=== PATIENT | male | born 1945 | race Caucasian/White ===

== ENCOUNTER 2017-09-11 16:24 | Emergency (ER) | payer BC, MEDICARE ==
[~2017-09-11] VITALS: Wt 77.7 kg
[~2017-09-11 16:24] MED LIST: HYDR-2932; MAA5
[2017-09-11] MEDS ORDERED: OLANZAPINE (ODT) 5 MG TAB PO STA (17:39)
[2017-09-11 18:02] LABS: BASOPHILS % 0.4 % (0.0-2.0); EOSINOPHILS # 0.1 10^3/ul (0.0-0.5); HEMATOCRIT 41.7 % (42.0-52.0); HEMOGLOBIN 14.5 g/dl (14.0-18.0); LYMPHOCYTES # 3.3 10^3/ul (0.8-2.9); LYMPHOCYTES % 29.7 % (15.0-51.0); MEAN CORPUSCULAR HEMOGLOBIN 28.7 pg (29.0-33.0); MEAN CORPUSCULAR HGB CONC 34.8 g/dl (32.0-37.0); MEAN CORPUSCULAR VOLUME 82.4 fl (82.0-101.0); MONOCYTE # 0.9 10^3/ul (0.3-0.9); MONOCYTES % 7.6 % (0.0-11.0); NEUTROPHIL # 6.9 10^3/ul (1.6-7.5); NEUTROPHILS % 60.9 % (39.0-77.0); PLATELET COUNT 234 10^3/UL (140-415); RED BLOOD COUNT 5.06 10^6/ul (4.70-6.10); RED CELL DISTRIBUTION WIDTH 12.8 % (11.5-14.5); WHITE BLOOD COUNT 11.3 10^3/ul (4.8-10.8)
[2017-09-11 18:17] LABS: INR 0.92; PROTIME 12.4 Sec (11.9-14.9)
[2017-09-11 18:18] LABS: PARTIAL THROMBOPLASTIN TIME 27.7 Sec (25.0-35.0)
--- NOTE | 2017-09-11 18:20 | RADRPT ---
PROCEDURE: XR Chest. CLINICAL INDICATION: Altered level of consciousness TECHNIQUE: Single AP portable chest. COMPARISON: No prior Chest x-ray FINDINGS: The cardiomediastinal silhouette is within normal limits of size. The lungs are clear without pleur al effusion or focal consolidation. No pneumothorax. The osseous structures and soft tissues are unr emarkable. IMPRESSION: 1. No evidence for active cardiopulmonary disease. RPTAT:AAJJ Bill Amaya Physician Date Time Electronically viewed and signed by Physician Shakir on 09/11/2017 18:20 EMELINA/
[2017-09-11 18:22] LABS: ALANINE AMINOTRANSFERASE 46 IU/L (13-69); ALBUMIN 4.2 g/dl (3.3-4.9); ALBUMIN/GLOBULIN RATIO 1.07; ALKALINE PHOSPHATASE 101 IU/L (42-121); ANION GAP 15 (8-16); ASPARTATE AMINO TRANSFERASE 33 IU/L (15-46); BILIRUBIN,INDIRECT 0.7 mg/dl (0-1.1); BILIRUBIN,TOTAL 0.7 mg/dl (0.2-1.3); BLOOD UREA NITROGEN 17 mg/dl (7-20); CALCIUM 9.8 mg/dl (8.4-10.2); CARBON DIOXIDE 28 mmol/L (21-31); CHLORIDE 100 mmol/L (97-110); GLUCOSE 231 mg/dl (70-220); POTASSIUM 4.1 mmol/L (3.5-5.1); SODIUM 139 mmol/L (135-144); TOTAL PROTEIN 8.1 g/dl (6.1-8.1)
[2017-09-11 18:23] LABS: ETHANOL < 10.0 mg/dl; SALICYLATE < 1.0 mg/dl (5.0-30.0)
--- NOTE | 2017-09-11 18:26 | RADRPT ---
PROCEDURE: CT brain without contrast CLINICAL INDICATION: Asymptomatic medical clearance TECHNIQUE: A CT of the brain was performed utilizing axial sections from the skull base through th e vertex without contrast. Sagittal and coronal images were also reformatted. One or more of the fol lowing dose reduction techniques were used: Automated exposure control, adjustment of the mA and/or kV according to patient size, use of iterative reconstruction technique. The exam CTDIvol = 45.01 mGy and DLP = 720.23 mGy-cm. COMPARISON: None available FINDINGS: No acute intracranial hemorrhage is identified. There is no mass effect or midline shift. No extra -axial fluid collection is seen. The ventricles and sulci are larger in size and configuration for the patient's provided age of 72 years consistent with advanced generalized atrophy. Mild low atten uation in the periventricular white matter is nonspecific likely the sequela of chronic small vessel ischemia. Benign physiologic calcifications within the globus pallidus bilaterally are noted. Hilario -white differentiation is preserved with no findings to suggest an acute ischemic infarct. The fourth ventricle is midline and there is no density alteration within the mark or cerebellum. The osseous structures are unremarkable. The mastoid air cells and visualized paranasal sinuses are clear. RPTAT:HJJR IMPRESSION: Advanced atrophy for the patient's provided age with mild chronic small vessel ischemic white matter disease but no evidence of acute intracranial abnormality or mass effect. Physician Juanis Date Time Electronically viewed and signed by Physician Juanis on 09/11/2017 18:26 /
[2017-09-11 18:35] LABS: TROPONIN-I < 0.012 ng/ml (0.00-0.12)
--- NOTE | 2017-09-11 18:47 | PSY ---
Date/Time of Note Date/Time of Note DATE: 09/11/17 TIME: 18:36 Psychiatric Subjective Eval Consent Pt consented to telemedicine: Yes Subjective Evaluation Patient location: emergency Chief Complaint: ALOC X3 DAYS NOW, NO SLURRED SPEECH, NO WEAKNESS, Reason for consult: Evaluation History of present illness Pt is a 72 year old male, Lebanese speaking, who was brought in for altered consciousness. Patient is hyperverbal but directable. Family helped with interpretation. Patient went to another ER last night. At that time, he had gone one night without sleep. He was up pacing, talking about God, and family could not get him to sit still and rest. He was found to have elevated glucose and was given insulin and sent home. However, he did not sleep last night either. Symptoms did not change and so he was brought to [facility] ER tonight. Pt reports his mood is "happy as long as my family is happy." He talks non- stop. He is not hearing things but tells his family that he is seeing the devil and other things that they cannot see. He does not want to but is ready if he needs to . Per family, he recently started an OTC syrup to help control his diabetes. He also has been consuming a lot of Vit B12. Family reports injury at work a few months ago. However, the details of this are not clear. Past psychiatric history Per family, none. Hospitalization: no Family History Denies Medical history Diabetes Allergies: Coded Allergies: No Known Drug Allergy (Verified Allergy, Mild, 10/31/09) Substance Abuse Substance use: No known substance abuse Social History Level of education: NA DPA/Conservatorship: No Occupation/Snf: Works as a utility mechanic Psychiatric Objective Eval Physical Examination: Physical Examination: Applicable Sleep: Insomnia Energy: Increased Interest: Increased Mental Status Examination: Appearance: Poor Hygiene Eye Contact: Poor Psychomotor Activity: Agitated Behavior: Cooperative Speech: Pressured AFFECT: Appropriate Mood: Elevated Thought Content: Hallucinations Suicidal: No Homicidal: No On 72 hour hold: No Orientation: x3 Cognition: Alert Insight: Impared Judgement: Impared Laboratory Results Laboratory Tests Test 09/11/17 16:43 09/11/17 17:37 09/11/17 17:55 Bedside Glucose 258mg/dL 199mg/dL White Blood Count 11.310^3/ul Red Blood Count 5.0610^6/ul Hemoglobin 14.5g/dl Hematocrit 41.7% Mean Corpuscular Volume 82.4fl Mean Corpuscular Hemoglobin 28.7pg Mean Corpuscular Hemoglobin Concent 34.8g/dl Red Cell Distribution Width 12.8% Platelet Count 49919^3/UL Mean Platelet Volume 9.0fl Neutrophils % 60.9% Lymphocytes % 29.7% Monocytes % 7.6% Eosinophils % 1.0% Basophils % 0.4% Nucleated Red Blood Cells % 0.0/100WBC Neutrophils # 6.910^3/ul Lymphocytes # 3.310^3/ul Monocytes # 0.910^3/ul Eosinophils # 0.110^3/ul Basophils # 0.010^3/ul Nucleated Red Blood Cells # 0.010^3/ul Prothrombin Time 12.4Sec Prothrombin Time Ratio 1.0 INR International Normalized Ratio 0.92 Activated Partial Thromboplast Time 27.7Sec Sodium Level 139mmol/L Potassium Level 4.1mmol/L Chloride Level 100mmol/L Carbon Dioxide Level 28mmol/L Anion Gap 15 Blood Urea Nitrogen 17mg/dl Creatinine 0.90mg/dl Glucose Level 231mg/dl Calcium Level 9.8mg/dl Total Bilirubin 0.7mg/dl Direct Bilirubin 0.00mg/dl Indirect Bilirubin 0.7mg/dl Aspartate Amino Transf (AST/SGOT) 33IU/L Alanine Aminotransferase (ALT/SGPT) 46IU/L Alkaline Phosphatase 101IU/L Troponin I < 0.012ng/ml Total Protein 8.1g/dl Albumin 4.2g/dl Globulin 3.90g/dl Albumin/Globulin Ratio 1.07 Salicylates Level < 1.0mg/dl Ethyl Alcohol Level < 10.0mg/dl Assessment and Plan Assessment/Diagnosis [place] I: Bipolar Disorder, Unspecified (possibly induced by OTC product he started using 5 days ago) Recommendation/Plan Medication Management Consider providing Zyprexa 5mg po/im while in ER. Psychotherapy NA Pt. Caregiver/Family Education D/w family Follow-up/Disposition Pt with possible new onset greg. Unusual presentation given his age and reported history. Would recommend full medical workup including neuroimaging, EEG, TSH, Ca, PTH to look for any underlying medical conditions that might induce the greg. It can be challenging to distinguish an agitated delirium from a greg in his age group. However, I think this is rgeg as I did not see any waxing or waning of consciousness. I suspect that this is a substance induced greg from his OTC agents. He has purchased "alternative medication" online and appears to be taking a lot of it. His use of the alternative medicine corresponds to the greg. Once medically cleared, recommend 5150 and transfer to inpatient psychiatry for observation and stabilization. Pt is gravely disabled due to his greg. 5150 Recommendation: FREDY Mirza Sep 11, 2017 18:46
[2017-09-11] MEDS ORDERED: GLIM4TAB PO (18:51)
[2017-09-11] MEDS ORDERED: [UNRECOGNIZED DRUG - OTHER] PO (18:55)
[2017-09-11] MEDS ORDERED: SUGAR BALANCE PO (18:56)
[2017-09-11] MEDS ORDERED: [UNRECOGNIZED DRUG - REMARK] PO (18:58)
--- NOTE | 2017-09-11 19:45 | ERD ---
ER Documentation Chief Complaint Chief Complaint ALOC X3 DAYS NOW, NO SLURRED SPEECH, NO WEAKNESS, HPI Patient is a 72-year-old male with hypertension and diabetes who presents with altered mental status. Please note the history and physical exam is limited secondary to the patient's altered mental status at this time. He keeps talking about God and the Bible constantly. It started 3 days ago and has been worsening per the family. He has no history of psychiatric disease per the family. He has diabetes and has been noncompliant. He has no fevers. He has had a headache for 3 months after an accident 3 months ago. He did start taking a medicine that he saw on TV that he ordered [id number] 5 days ago. It appears to be a multivitamin. Upon review of old medical records this is the patient's third visit to the ER since 2008 he does not have previous psychiatric visits. ROS All systems reviewed and are negative except as per history of present illness. Medications Home Meds Reported Medications [Celulas Madres] No Conflict Check, 1 TAB PO DAILY 09/11/17 [Sugar Balance] No Conflict Check, 1 TAB PO DAILY 09/11/17 [Neurobion B12] No Conflict Check, 1 TAB PO DAILY PATIENT TAKE UNCONTROLLABLE 09/11/17 Glimepiride* (Glimepiride*) Unknown Strength Tablet, 1 TAB PO WITH BREAKFAST, TAB ONCE IN A WHILE 09/11/17 Discontinued Reported Medications Hydrocodone Bit/Acetaminophen (Hydrocodone-Apap 5-500 Mg Tab) 1 Tab Tablet 10/31/09 Al Hydroxide/Mg Hydroxide (Maalox) 148 Ml Susp 10/07/09 Allergies Allergies: Coded Allergies: No Known Drug Allergy (Verified Allergy, Mild, 09/11/17) PMhx/Soc History of Surgery: No Hx Neurological Disorder: No Hx Respiratory Disorders: No Hx Cardiac Disorders: No Hx Miscellaneous Medical Probl: Yes (GALLSTONES, DM , HTN) Hx Alcohol Use: No Hx Substance Use: No Hx Tobacco Use: No Smoking Status: Never smoker FmHx Family History: No diabetes Physical Exam Vitals Vital Signs Date Time Temp Pulse Resp B/P Pulse Ox O2 Delivery O2 Flow Rate FiO2 09/11/17 18:27 97.3 72 18 142/88 95 Room Air 09/11/17 16:31 97.3 84 18 158/92 94 Physical Exam Const: Pressured speech with continuous discussion of God and the Bible Head: Atraumatic Eyes: Normal Conjunctiva ENT: Normal External Ears, Nose and Mouth. Neck: Full range of motion..~ No meningismus. Resp: Clear to auscultation bilaterally Cardio: Regular rate and rhythm, no murmurs Abd: Soft, non tender, non distended. Normal bowel sounds Skin: No petechiae or rashes Back: No midline or flank tenderness Ext: No cyanosis, or edema Neur: Awake and is all 4 extremities, no slurred speech Psych: Patient has pressured speech and continues to discuss God and the Bible, no suicidal or homicidal ideation Result Diagram: 09/11/17 1755 09/11/171754 Results 24 hrs Laboratory Tests Test 09/11/17 16:43 09/11/17 17:37 09/11/17 17:55 Bedside Glucose 258mg/dL 199mg/dL White Blood Count 11.310^3/ul Red Blood Count 5.0610^6/ul Hemoglobin 14.5g/dl Hematocrit 41.7% Mean Corpuscular Volume 82.4fl Mean Corpuscular Hemoglobin 28.7pg Mean Corpuscular Hemoglobin Concent 34.8g/dl Red Cell Distribution Width 12.8% Platelet Count 59834^3/UL Mean Platelet Volume 9.0fl Neutrophils % 60.9% Lymphocytes % 29.7% Monocytes % 7.6% Eosinophils % 1.0% Basophils % 0.4% Nucleated Red Blood Cells % 0.0/100WBC Neutrophils # 6.910^3/ul Lymphocytes # 3.310^3/ul Monocytes # 0.910^3/ul Eosinophils # 0.110^3/ul Basophils # 0.010^3/ul Nucleated Red Blood Cells # 0.010^3/ul Prothrombin Time 12.4Sec Prothrombin Time Ratio 1.0 INR International Normalized Ratio 0.92 Activated Partial Thromboplast Time 27.7Sec Sodium Level 139mmol/L Potassium Level 4.1mmol/L Chloride Level 100mmol/L Carbon Dioxide Level 28mmol/L Anion Gap 15 Blood Urea Nitrogen 17mg/dl Creatinine 0.90mg/dl Glucose Level 231mg/dl Hemoglobin A1c 10.8% Calcium Level 9.8mg/dl Total Bilirubin 0.7mg/dl Direct Bilirubin 0.00mg/dl Indirect Bilirubin 0.7mg/dl Aspartate Amino Transf (AST/SGOT) 33IU/L Alanine Aminotransferase (ALT/SGPT) 46IU/L Alkaline Phosphatase 101IU/L Troponin I < 0.012ng/ml Total Protein 8.1g/dl Albumin 4.2g/dl Globulin 3.90g/dl Albumin/Globulin Ratio 1.07 Salicylates Level < 1.0mg/dl Acetaminophen Level Pending Ethyl Alcohol Level < 10.0mg/dl Current Medications Medications (Trade) Dose Ordered Sig/Ro Route PRN Reason Start Time Stop Time Status Last Admin Dose Admin Olanzapine (Zyprexa Zydis) 5 mg ONCE STAT PO 09/11/17 17:39 09/11/17 17:41 DC 09/11/17 18:39 Olanzapine (Zyprexa Zydis) 5 mg DAILY ODT 09/12/17 09:00 Procedures/MDM EKG read by me: Rate/Rhythm: Regular rate and rhythm at a normal rate Intervals: Normal Impression: No evidence of ischemia or arrhythmia Chest x-ray negative for pneumonia or pneumothorax per radiology. CT brain negative for acute bleed or mass per radiology. Patient is a 72-year-old male who presents with pressured speech and what appears to be an acute psychosis. Laboratory studies were basically normal. CT brain shows no intracranial hemorrhage or mass. I gave Zyprexa 5 mg by mouth [address] Dr[address] renae from psychiatry recommended a 5150 hold for grave disability. The patient is now medically cleared and will be transferred for psychiatric care. Critical Care: Time: 35 minutes excluding all billable procedures. Treatments/Evaluations: Close monitoring and treatment of unstable vital signs, cardiorespiratory, and neurologic status, while maintaining tight balance of fluid, respiratory, and cardiac interventions. Departure Diagnosis: Primary Impression: Psychosis Psychosis type: unspecified psychosis type Qualified Code: F29 - Psychosis, unspecified psychosis type Additional Impression: Altered level of consciousness Condition: Fair Patient Instructions: Altered Loc, Psychosis HILDA MCDONNELL MD Sep 11, 2017 19:45
[2017-09-11 21:59] LABS: ADD UMIC NO; UR ASCORBIC ACID NEGATIVE (NEGATIVE); UR BILIRUBIN (Dip) NEGATIVE (NEGATIVE); UR BLOOD (Dip) NEGATIVE (NEGATIVE); UR CLARITY CLEAR (CLEAR); UR COLOR YELLOW (YELLOW); UR GLUCOSE (Dip) 3+ mg/dL (NEGATIVE); UR KETONES (Dip) TRACE mg/dL (NEGATIVE); UR LEUKOCYTE ESTERASE (Dip) NEGATIVE Leu/ul (NEGATIVE); UR NITRITE (Dip) NEGATIVE (NEGATIVE); UR SPECIFIC GRAVITY (Dip) 1.012 (1.003-1.030); UR TOTAL PROTEIN (Dip) NEGATIVE (NEGATIVE); UR UROBILINOGEN (Dip) NEGATIVE (NEGATIVE)
[2017-09-11] MEDS ORDERED: SOD CHLORIDE 0.9% 1,000 ML IV STA (22:05)
[2017-09-11 22:13] LABS: BARBITURATES NEGATIVE (NEGATIVE); BENZODIAZEPINES NEGATIVE (NEGATIVE); CANNABINOIDS NEGATIVE (NEGATIVE); COCAINE NEGATIVE (NEGATIVE); OPIATES NEGATIVE (NEGATIVE)
[2017-09-11 22:19] LABS: ACETAMINOPHEN < 10.0 ug/ml (10.0-30.0)
[2017-09-11] MEDS ORDERED: OLANZAPINE (ODT) 5 MG TAB ODT ONE (23:30)
[2017-09-12 01:14] VITALS: BP 148/87; PULSE 70; RESP 18; TEMP 98.1
[2017-09-12] MEDS ORDERED: OLANZAPINE (ODT) 5 MG TAB ODT SCH (09:00)
== END 2017-09-12 01:15 ==
LOC: E/R 16:24
DX: F29 Unspecified psychosis not due to a substance or known physiological condition (principal); I10 Essential (primary) hypertension; E11.9 Type 2 diabetes mellitus without complications; R51 Headache; R47.89 Other speech disturbances
CPT/HCPCS: 36415; 70450; 71010; 80053; 80306; 80307; 81003; 82962; 83036; 84439; 84443; 84484; 85025; 85610; 85730; 93005; 99291; J7030